=== PATIENT | female | born 1995 | race Caucasian/White ===

== ENCOUNTER 2022-03-15 21:41 | Inpatient (IN) | payer OTHER ==
[~2022-03-15 21:41] MED LIST: Bupivacaine/Epinephrine 0.25% 30 ML VIAL ONE
[2022-03-15] MEDS ORDERED: Ibuprofen 800 MG TAB PO PRN (22:22)
[2022-03-15] MEDS ORDERED: Ondansetron PF 4 MG/2 ML Vial IVP PRN (22:22)
[2022-03-15] MEDS ORDERED: Misoprostol 200 MCG TAB PR PRN (22:22)
[2022-03-15] MEDS ORDERED: Methylergonovine 0.2 MG/ML VIAL IM PRN (22:22)
[2022-03-15] MEDS ORDERED: Carboprost 250 MCG/ML AMP IM PRN (22:22)
[2022-03-15] MEDS ORDERED: Promethazine HCl 25 MG/ML VIAL IM PRN (22:22)
[2022-03-15] MEDS ORDERED: Acetaminophen 500 MG TAB PO PRN (22:22)
[2022-03-15] MEDS ORDERED: Lidocaine 1% (PF) 30 ML VIAL SC PRN (22:22)
[2022-03-15] MEDS ORDERED: hydrALAZINE 20 MG/ML VIAL SLOW IVP PRN (22:22)
[2022-03-15] MEDS ORDERED: Lactated Ringer's 1,000 ML IV SCH (22:30)
[2022-03-15] MEDS ORDERED: NS w/ Oxytocin 30 units 500 ML IV SCH ×2 (22:30)
[2022-03-15 22:45] LABS: Hemoglobin 10.8 g/dL (12.0-15.5); Mean Corpuscular HGB CONC 34.7 g/dL (32.0-36.0); Mean Corpuscular Hemoglobin 29.4 pg (27.0-33.0); Mean Corpuscular Volume 84.7 fl (81.6-98.3); Mean Platelet Volume 11.1 fl (7.4-10.4); Platelet Count 236 10x3/uL (150-450); RBC Distribution Width 13.2 % (11.5-14.5); Red Blood Cell (RBC) Count 3.67 10x6/uL (3.90-5.03); White Blood Cell (WBC) Count 11.7 10x3/uL (3.5-10.5)
[2022-03-15 23:17] LABS: Hep B Surf Ag Non-Reactive S/CO (NonReactive); Syphilis Antibody Nonreactive (Nonreactive); Syphilis Antibody Index 0.03 S/CO (<1.00 Non-Reactive)
[2022-03-15 23:20] LABS: HBSAg Index 0.17 S/CO (0-0.99)
[2022-03-15 23:59] VITALS: BMI 32.6
[2022-03-16 01:56] LABS: SARS-CoV-2 NAA Rapid Test Not Detected (NotDetected)
[2022-03-16] MEDS: Misoprostol 100 MCG TAB PO SCH ×2 (02:40→10:50)
[2022-03-16 11:28] LABS: HIV (1/2) Antibody/Antigen Non-Reactive (NonReactive); HIV 1/2 INDEX 0.21 S/CO (<1.00)
[2022-03-16] MEDS ORDERED: Fentanyl 2 mcg/Bup 0.1% Cadd 100 ML ONE (21:09)
[2022-03-16] MEDS ORDERED: Lactated Ringer's 500 ML IV PRN (21:36)
[2022-03-16] MEDS ORDERED: Moisturizing Cream (Eucerin) 113 GM JAR TOP PRN (21:36)
[2022-03-16] MEDS ORDERED: Acetaminophen 325 MG TAB PO PRN (21:36)
[2022-03-16] MEDS ORDERED: diphenhydrAMINE 50 MG/ML VIAL IVP PRN (21:36)
[2022-03-16] MEDS ORDERED: ePHEDrine Sulfate 50 MG/10 ML VIAL SLOW IVP PRN (21:36)
[2022-03-16] MEDS ORDERED: Promethazine HCl 25 MG/ML VIAL IM PRN (21:36)
[2022-03-16] MEDS ORDERED: Ondansetron PF 4 MG/2 ML Vial IVP PRN (21:36)
[2022-03-16] MEDS ORDERED: Naloxone HCl 0.4 mg/ml Vial IVP PRN ×2 (21:36)
[2022-03-16] MEDS ORDERED: Fentanyl 2 mcg/Bupivacaine 0.1% Cassette 100 ML EPIDURAL SCH (21:45)
[2022-03-16] MEDS ORDERED: Communication Order-Pharmacy FS SCH (21:45)
[2022-03-17] MEDS ORDERED: hydrALAZINE 20 MG/ML VIAL SLOW IVP PRN (00:25)
[2022-03-17] MEDS ORDERED: Bisacodyl 10 MG SUPP PR PRN (00:25)
[2022-03-17] MEDS ORDERED: Promethazine HCl 25 MG/ML VIAL IM PRN (00:25)
[2022-03-17] MEDS ORDERED: Ondansetron PF 4 MG/2 ML Vial IVP PRN (00:25)
[2022-03-17] MEDS ORDERED: Milk Of Magnesia 30 ML UDCUP PO PRN (00:25)
[2022-03-17] MEDS ORDERED: Boostrix 0.5 ML (Tdap) VIAL IM ONE (00:25)
[2022-03-17 00:53] LABS: Hemoglobin 11.3 g/dL (12.0-15.5); Mean Corpuscular Hemoglobin 29.5 pg (27.0-33.0); Mean Corpuscular Volume 86.7 fl (81.6-98.3); Mean Platelet Volume 11.2 fl (7.4-10.4); Platelet Count 240 10x3/uL (150-450); RBC Distribution Width 13.1 % (11.5-14.5); Red Blood Cell (RBC) Count 3.83 10x6/uL (3.90-5.03); White Blood Cell (WBC) Count 20.7 10x3/uL (3.5-10.5)
[2022-03-17 01:29] LABS: MDiff Complete? YES
[2022-03-17 01:32] LABS: Band 12 % (5-11); Lymphocytes 5 % (21-51); Monocytes 2 % (0-10); Neutrophil 81 % (42-75)
[2022-03-17 01:33] LABS: Platelet Morphology Comment Appears Adequate; RBC Morphology Normal
[2022-03-17] MEDS: Ibuprofen 800 MG TAB PO SCH ×3 (06:04→22:23)
[2022-03-17] MEDS: Ferrous Sulfate 325 MG TAB PO SCH (07:11)
[2022-03-17] MEDS: Misoprostol 100 MCG TAB PO SCH ×2 (07:12→07:13)
[2022-03-17] MEDS: Docusate 100 MG CAP PO SCH ×2 (09:16→22:23)
[2022-03-18] MEDS: Ibuprofen 800 MG TAB PO SCH ×2 (05:29→13:40)
[2022-03-18 06:34] LABS: #Eosinphils 0.2 10x3/uL (0.0-0.5); #Monocytes 0.8 10x3/uL (0.0-1.1); #Neutrophils 8.7 10x3/uL (1.5-8.4); %Basophils 0.2 % (0.0-2.0); %Eosinophils 1.8 % (0.0-6.0); %Lymphocytes 23.2 % (18.0-47.0); %Monocytes 6.4 % (0.0-10.0); %Neutrophils 67.9 % (40.0-75.0); Hemoglobin 9.7 g/dL (12.0-15.5); Mean Corpuscular HGB CONC 33.7 g/dL (32.0-36.0); Mean Corpuscular Hemoglobin 29.6 pg (27.0-33.0); Mean Corpuscular Volume 87.8 fl (81.6-98.3); Mean Platelet Volume 11.2 fl (7.4-10.4); Platelet Count 220 10x3/uL (150-450); RBC Distribution Width 13.5 % (11.5-14.5); Red Blood Cell (RBC) Count 3.28 10x6/uL (3.90-5.03); White Blood Cell (WBC) Count 12.8 10x3/uL (3.5-10.5)
[2022-03-18] MEDS: Ferrous Sulfate 325 MG TAB PO SCH (07:00)
[2022-03-18 07:17] VITALS: BP 100/62; TEMP 97.5
[2022-03-18] MEDS: Docusate 100 MG CAP PO SCH (07:57)
[2022-03-18] MEDS ORDERED: Prenatal Vitamin 1 TAB PO SCH (09:00)
[2022-03-18] MEDS ORDERED: Measles/Mumps/Rubella 10 MCG/0.5 ML VIAL SC ONE (09:15)
== END 2022-03-18 14:01 | disposition home or self-care (01) | DRG 807 ==
LOC: CSHLD/OP 21:41 → CSHLD 23:58 → CSHPP 03-17 03:01
PROVIDERS: ADMIT Obstetrics & Gynecology; ATTEND Obstetrics & Gynecology
PROC: 3E0P7VZ Introduction of Hormone into Female Reproductive, Via Natural or Artificial Opening (ICD-10-PCS; 2022-03-16)
PROC: 10E0XZZ Delivery of Products of Conception, External Approach (ICD-10-PCS; principal; 2022-03-17)
PROC: 0KQM0ZZ Repair Perineum Muscle, Open Approach (ICD-10-PCS; 2022-03-17)
DX: O42.02 Full-term premature rupture of membranes, onset of labor within 24 hours of rupture (principal); Z37.0 Single live birth; Z20.822 Contact with and (suspected) exposure to COVID-19; Z3A.39 39 weeks gestation of pregnancy; O70.1 Second degree perineal laceration during delivery; O76 Abnormality in fetal heart rate and rhythm complicating labor and delivery
CPT/HCPCS: 36415; 85025; 85027; 86780; 86850; 86900; 86901; 87340; 87389; 90707; J2590; U0002